=== PATIENT | female | born 1945 | race Caucasian/White ===

== ENCOUNTER → 2025-09-18 | Outpatient (CLI) | payer MEDICARE ==
[~2025-09-18] MED LIST: IOHEXOL 350 MG/ML 100ML INFUS..BTL IV ONE
--- NOTE | 2025-09-18 23:30 | HMCSR ---
APPROVED REPORT EXAM: Two-dimensional and M-mode echocardiogram with Doppler and color Doppler. INDICATION ICD: Cardiac murmur, unspecified R01.1 2D Dimensions RVDd 3.7 cm LVEF(%) 58.8 (>50%) LVED Vol(simp.) 62.6 mL IVSd 1.2 (0.7-1.1cm) FS(%) 30 % LVES Vol(simp.) 30.8 mL LVDd 3.7 (3.8-5.6cm) LA (2D) 4.1 (1.6-4.0cm) LVEF(%, simp.) 51 % PWd 1.3 (0.7-1.1cm) Ao Root(2D) 3.2 (2.0-3.7cm) LA ESV INDEX (BP) 48.39 mL/m2 LVDs 2.6 (2.5-4.0cm) LVOT diam 1.9 (1.8-2.4cm) IVC diam 1.7 cm M-Mode Dimensions EPSS 1.4 cm LA (MM) 3.6 (1.6-4.0cm) Ao Root(MM) 2.8 (2.0-3.7cm) Aortic Valve AoV Vmax 2.2 m/s Ao Peak GR 19.0 mmHg LVOT Vmax 0.9 m/s AoV VTI 0.5 m Ao Mean GR 11.3 mmHg LVOT VTI 0.20 m ANDRA (VMAX) 1.12 cm2 ANDRA (VTI) 1.0 cm2 Mitral Valve MV E Vmax 124.1 cm/s DECEL Time 166 ms MV A Vmax 30.6 cm/s P 1/2 T 69 ms E/A ratio 4.1 MVA (PHT) 3.2 cm2 TDI E/E' Medial 19.1 E/E' Lateral 14.9 Medial E' Peak V 6.49 cm/s Lateral E' Peak V 8.33 cm/s Pulmonary Valve PV Vmax 1.0 m/s PV VTI 0.16 m PV Mean GR 2.2 mmHg PV Peak GR 3.8 mmHg Tricuspid Valve TR Vmax 3.2 m/s RAP (EST) 3 mmHg RVSP 45.1 mmHg TR Peak GR 42.1 mmHg Left Ventricle The left ventricle is normal size. No regional wall motion abnormalities noted. Mild concentric left ventricular hypertrophy. Left ventricular systolic function is low-normal, estimated LVEF is 50-55%. Stage III diastolic dysfunction. Right Ventricle The right ventricle is normal size. Right ventricular systolic function is moderately reduced. Atria The left atrium is severely dilated, 48ml/m2. The right atrium is severely dilated. Aortic Valve Aortic valve is probably trileaflet. The leaflets are moderately thickened and calcified. Trace aortic regurgitation. Mild aortic stenosis: Peak velocity 2.3 m/s, mean gradient 13 mmHg Mitral Valve Mild mitral annular calcification is noted. The leaflets are mildly thickened and calcified. Mild mitral regurgitation. There is no mitral valve stenosis. Tricuspid Valve The tricuspid valve is normal in structure. Moderate tricuspid regurgitation. RVSP is 42 mmHg. Pulmonic Valve Pulmonic valve is not well visualized. Great Vessels The aortic root is normal in size. The IVC is normal in size and collapses >50% with inspiration. Pericardium There is no pericardial effusion. Conclusion The left atrium is severely dilated, 48ml/m2. The right atrium is severely dilated. Mild concentric left ventricular hypertrophy. No regional wall motion abnormalities noted. Left ventricular systolic function is low-normal, estimated LVEF is 50-55%. Stage III diastolic dysfunction. Mild aortic stenosis: Peak velocity 2.3 m/s, mean gradient 13 mmHg Trace aortic regurgitation. Mild mitral regurgitation. Moderate tricuspid regurgitation. PASP is 45 mmHg. There is no pericardial effusion.
== END | disposition home or self-care (01) ==
LOC: RAH 08:39
PROVIDERS: ATTEND Internal Medicine Cardiovascular Disease
DX: I08.3 Combined rheumatic disorders of mitral, aortic and tricuspid valves (principal); R01.1 Cardiac murmur, unspecified; I48.20 Chronic atrial fibrillation, unspecified; I51.7 Cardiomegaly
CPT/HCPCS: 93306; J3490; Q9967